=== PATIENT | male | born 1955 | race Caucasian/White ===

== ENCOUNTER 2017-01-09 07:00 | Day surgery (SDC) | payer OTHER ==
[2017-01-08 09:26] VITALS: BMI 33.1
[2017-01-09] MEDS ORDERED: MIDAZOLAM HCL 2 MG/2 ML SINGLE DOSE VIAL ONE ×2 (07:59→10:10)
[2017-01-09] MEDS ORDERED: DEXAMETHASONE SOD PHOSPHATE/PF 10 MG/ML SDV ONE (07:59)
[2017-01-09] MEDS ORDERED: ROPIVACAINE HCL 0.5% 30ML VIAL ONE (08:00)
[2017-01-09] MEDS ORDERED: VANCOMYCIN 1,000 MG VIAL (RESTRICTED TO ID ONLY) ONE (08:23)
[2017-01-09] MEDS ORDERED: BUPIVACAINE HCL/EPINEPHRINE/PF 30 ML VIAL IJ ONE (08:24)
--- NOTE | 2017-01-09 09:58 | HP ---
Admitting History and Physical - Admission History of Present Illness: The patient is a 61 yo male who injured himself approx 1 week ago while playing a game called [employer]. He went to stretch for a ball and over stretched. At the time, he felt a pop and then had pain in his ankle. He denies any h/o of chest pain, SOB and has a hisotry of stents placed in 2007. History Source: Patient - Past Medical History Cardiovascular: Yes: HTN, Hyperlipdemia. No: Deep Vein Thrombosis Pulmonary: No: Asthma, Bronchitis, Sleep Apnea Gastrointestinal: No: Gastritis, GERD Renal/: No: Renal Failure, Hematuria Heme/Onc: No: Anemia, Bleeding Disorder - Past Surgical History Additional Past Surgical History: right total knee in 2012, rotator cuff repair(left) - Smoking History Smoking history: Never smoked Have you smoked in the past 12 months: No - Alcohol/Substance Use Hx Alcohol Use: No Home Medications - Allergies Allergies/Adverse Reactions: Allergies Allergy/AdvReac Type Severity Reaction Status Date / Time No Known Allergies Allergy Verified 01/09/17 07:44 - Home Medications Home Medications: Ambulatory Orders Amlodipine Bes/Olmesartan Med [Amlodipine-Olmesartan 10-20 mg] 1 each PO DAILY 01/08/17 Aspirin [ASA -] 81 mg PO DAILY 01/08/17 Clopidogrel Bisulfate [Plavix -] 75 mg PO DAILY 01/08/17 Metoprolol Succinate [Toprol Xl -] 25 mg PO DAILY 01/08/17 Rosuvastatin Calcium [Crestor] 40 mg PO DAILY 01/08/17 Review of Systems - Review of Systems Constitutional: denies: Chills, Fever Neck: reports: Decreased ROM (left ankle), Pain on Movement (left ankle) Cardiovascular: denies: Chest Pain, Palpitations Respiratory: denies: Cough, SOB Gastrointestinal: denies: Abdominal Pain, Constipation Genitourinary: denies: Burning, Dysuria Musculoskeletal: denies: Back Pain, Decreased ROM Neurological: denies: Headache, Numbness, Parasthesia, Seizure Hematology/Lymphatic: denies: Easily Bruised, Excessive Bleeding Physical Examination Vital Signs: Vital Signs Temperature 98.4 F 01/09/17 07:21 Pulse Rate 68 01/09/17 07:21 Respiratory Rate 16 01/09/17 07:21 Blood Pressure 138/92 01/09/17 07:21 O2 Sat by Pulse Oximetry (%) 97 01/09/17 07:44 Constitutional: Yes: Well Nourished, No Distress, Calm HENT: Yes: WNL, Atraumatic, Normocephalic Neck: Yes: Supple, Trachea Midline Cardiovascular: Yes: WNL, Regular Rate and Rhythm Respiratory: Yes: WNL, Regular, CTA Bilaterally Gastrointestinal: Yes: WNL, Normal Bowel Sounds, Soft Edema: Yes (left ankle/lower ext) Edema: LLE: 1+ Peripheral Pulses WNL: Yes Peripheral Pulses: Left Doralis Pedis: 2+, Right Dorsalis Pedis: 2+ Neurological: Yes: WNL, Alert, Oriented ...Motor Strength: EDSON HARPER, RLE Psychiatric: Yes: Alert, Oriented Assessment/Plan 61 yo male with acute injury to left achilles tendon, for surgery today with Dr. Cotto he remians npo IV abx at time of surgery beta-baldo taken DVT ppx with RLE SCD
[2017-01-09] MEDS ORDERED: BUPIVACAINE HCL/PF 2.5 MG/ML - 30 ML VIAL IJ ONE (10:13)
[2017-01-09] MEDS ORDERED: ceFAZolin SODIUM 1 GM VIAL ONE (10:15)
[2017-01-09] MEDS ORDERED: BUPIVACAINE HCL/PF 0.25% (2.5MG/ML) 10 ML VIAL IJ ONE (10:25)
[2017-01-09] MEDS ORDERED: VANCOMYCIN 1,000 MG VIAL (RESTRICTED TO ID ONLY) IVPB ONE (10:53)
[2017-01-09] MEDS ORDERED: ONDANSETRON 4 MG/2 ML VIAL ONE (10:55)
[2017-01-09] MEDS ORDERED: KETOROLAC TROMETHAMINE 30 MG/1 ML VIAL ONE (10:55)
[2017-01-09] MEDS ORDERED: DEXAMETHASONE SOD PHOSPHATE 4 MG/1 ML VIAL ONE (10:55)
--- NOTE | 2017-01-09 11:23 | OP ---
Operative Note - Note: Operative Date: 01/09/17 Pre-Operative Diagnosis: left achilles rupture Operation: left achilles repair Post-Operative Diagnosis: Same as Pre-op Surgeon: Sachin Shannon Anesthesia: Local Operative Report Dictated: Yes
--- NOTE | 2017-01-09 11:24 | DS ---
Physical Examination Vital Signs: Vital Signs Temperature 98.4 F 01/09/17 07:21 Pulse Rate 68 01/09/17 07:21 Respiratory Rate 16 01/09/17 07:21 Blood Pressure 138/92 01/09/17 07:21 O2 Sat by Pulse Oximetry (%) 97 01/09/17 07:44 Discharge Summary Reason For Visit: LEFT ACHILLES TENDON TEAR Condition: Good - Instructions Diet, Activity, Other Instructions: Keep foot elevated above your heart. Start Plavix on Thursday Continue wit Aspirin Leg should be elevated with pillows over a broad area so there is no concentrated pressure on the incision. Call for an appointment to be seen in 2 weeks. Disposition: HOME - Home Medications Comprehensive Discharge Medication List: Ambulatory Orders Amlodipine Bes/Olmesartan Med [Amlodipine-Olmesartan 10-20 mg] 1 each PO DAILY 01/08/17 Aspirin [ASA -] 81 mg PO DAILY 01/08/17 Clopidogrel Bisulfate [Plavix -] 75 mg PO DAILY 01/08/17 Metoprolol Succinate [Toprol Xl -] 25 mg PO DAILY 01/08/17 Rosuvastatin Calcium [Crestor] 40 mg PO DAILY 01/08/17
[2017-01-09 12:08] VITALS: TEMP 98.6
[2017-01-09] MEDS ORDERED: ACETAMINOPHEN 325 MG TABLET (FP) PO PRN (14:04)
[2017-01-09] MEDS ORDERED: ONDANSETRON 4 MG/2 ML VIAL IVPUSH PRN (14:04)
[2017-01-09] MEDS ORDERED: oxyCODONE HCL 5 MG TABLET PO PRN ×2 (14:04)
[2017-01-09] MEDS ORDERED: LACTATED RINGERS SOLUTION 1,000 ML IV SCH (14:15)
[2017-01-09 14:57] VITALS: BP 120/66; PULSE 58
--- NOTE | 2017-01-16 09:07 | SURG ---
Surgery Payroll Services Analyst Note Payroll Services Analyst: Lalitha Sears PA-C Date of Service: 01/09/17 Diagnosis: left achilles rupture Procedure: left achilles repair I was present for the entirety of the operative procedure. For further detail, please refer to operative report. Visit type - Case Type Case Type: Scheduled Admission - Emergency Emergency Visit: No - New patient This patient is new to me today: Yes Date on this admission: 01/16/17 - Critical Care Critical Care patient: No
== END 2017-01-09 13:10 | disposition home or self-care (01) ==
LOC: FASU 07:00
PROVIDERS: ATTEND Orthopaedic Surgery
PROC: 0LQP0ZZ Repair Left Lower Leg Tendon, Open Approach (ICD-10-PCS; principal; 2017-01-09 10:26)
DX: S86.012A Strain of left Achilles tendon, initial encounter (principal); X58.XXXA Exposure to other specified factors, initial encounter; Y93.9 Activity, unspecified; Y92.9 Unspecified place or not applicable

== ENCOUNTER 2019-03-03 07:26 | Day surgery (SDC) | payer OTHER ==
[2019-02-25 11:18] VITALS: BMI 33.1
[2019-03-03] MEDS ORDERED: PROPOFOL 20 ML ONE ×4 (07:40)
[2019-03-03 07:49] VITALS: PULSE 58
[2019-03-03 08:45] VITALS: TEMP 98.2
[2019-03-03 09:13] VITALS: BP 125/82
== END 2019-03-03 09:14 | disposition home or self-care (01) ==
LOC: FASU-ENDO 07:26
PROVIDERS: ATTEND Internal Medicine Gastroenterology
PROC: 0DJD8ZZ Inspection of Lower Intestinal Tract, Via Natural or Artificial Opening Endoscopic (ICD-10-PCS; principal; 2019-03-03 08:19)
DX: Z12.11 Encounter for screening for malignant neoplasm of colon (principal)